=== PATIENT | female | born 1965 | race Caucasian/White ===

== ENCOUNTER 2017-02-21 08:42 | Inpatient (IN) | payer MEDICAID ==
[2017-02-21] VITALS (10 sets, daily range): BP systolic 156–222; BP diastolic 90–116; PULSE 60–80; RESP 14–20; TEMP 96–97.7; O2SAT 97–100
[~2017-02-21] VITALS: Ht 162.6 cm; Wt 39.0 kg
[~2017-02-21 08:42] MED LIST: ASPI1TAB69 PO; ECHICAP PO; LISI30TA4 PO; LYSI1TAB4 PO; MILK140C PO; VITA10002 PO
[2017-02-21] MEDS ORDERED: SODIUM CHLORIDE 0.9% FLUSH 10 ML FLUSH IVF PRN (09:15)
[2017-02-21] MEDS ORDERED: ASPIRIN 81 MG CHEW TAB CHEW ONE (09:15)
[2017-02-21] MEDS ORDERED: cloNIDine HCL 0.1 MG TAB PO ONE (09:15)
--- NOTE | 2017-02-21 09:18 | PD ---
HPI Chief Complaint: Neuro Symptoms/ Deficits Time Seen by Provider: 09:04 Travel History International Travel<30 days: No Contact w/Intl Traveler<30days: No Traveled to known affect area: No History of Present Illness HPI Patient presents with complaints of left-sided weakness and facial asymmetry for more than 24 hours. States she awoke yesterday morning at 5:30 AM with these symptoms and didn't feel right. History of breast cancer coronary artery disease and hypertension. Compliant with aspirin and lisinopril this morning. Patient states that she fell this morning onto her left buttocks. History of right sided Lawrence's palsy. Denies any chest pain shortness of breath urinary or bowel symptoms. Denies any nausea vomiting diarrhea or fever. Denies headache. No recent illnesses. Nonsmoker. PFSH Past Medical History Cancer: Yes ( LUNG CANCER) Cardiovascular Problems: Yes ( 2 MILD HEART ATTACKS) Chest Pain: Yes ([place] X 2) Diabetes: No Endocrine: No Genitourinary: No Hepatitis: No Hiatal Hernia: No Immune Disorder: No Musculoskeletal: No Neurologic: No Psychiatric: No Reproductive: No Respiratory: No Myocardial Infarction: Yes Thyroid Disease: No Past Surgical History Abdominal Surgery: No AICD: No Cardiac Surgery: No Section: Yes Ear Surgery: No Endocrine Surgery: No Eye Surgery: No Genitourinary Surgery: No Joint Replacement: No Oral Surgery: No Pacemaker: No Social History Alcohol Use: Yes (BEER DAILY) Tobacco Use: Yes (1 /2 PPD) Substance Use: No Allergies-Medications (Allergen,Severity, Reaction): Coded Allergies: Clindamycin (Verified Allergy, Severe, rash, 02/21/17) Levaquin (Verified Allergy, Intermediate, Itching, 02/21/17) Naprosyn (Verified Allergy, Intermediate, rash, 02/21/17) Amoxicillin (Verified Allergy, Mild, ITCHING, 02/21/17) SWELLING Penicillin (Verified Allergy, Mild, ITCHING, 02/21/17) Reported Meds & Prescriptions Reported Meds & Active Scripts Active Reported Lysine (Lysine HCl) 500 Mg Tab 1 Tab PO DAILY Vitamin B-12 (Cyanocobalamin) 1,000 Mcg Tab 1,000 Mcg PO DAILY Aspirin 81 Mg Tabdr 81 Mg PO DAILY Milk Thistle 140 Mg Cap 1 Caplet PO DAILY Lisinopril 30 Mg Tab 30 Mg PO DAILY Review of Systems General / Constitutional: No: Fever Eyes: No: Visual changes HENT: No: Headaches Cardiovascular: No: Chest Pain or Discomfort Respiratory: No: Shortness of Breath Gastrointestinal: No: Abdominal Pain Genitourinary: No: Dysuria Musculoskeletal: No: Pain Skin: No Rash Neurologic: No: Weakness Psychiatric: No: Depression Endocrine: No: Polydipsia Hematologic/Lymphatic: No: Easy Bruising Physical Exam Narrative GENERAL: Well-nourished, well-developed patient. Alert and oriented GCS 15 SKIN: Focused skin assessment warm/dry. HEAD: Normocephalic. Central facial weakness noted EYES: No scleral icterus. No injection or drainage. Pupils equal round reactive light accommodation NECK: Supple, trachea midline. No JVD or lymphadenopathy. CARDIOVASCULAR: Regular rate and rhythm without murmurs, gallops, or rubs. RESPIRATORY: Breath sounds equal bilaterally. No accessory muscle use. GASTROINTESTINAL: Abdomen soft, non-tender, nondistended. MUSCULOSKELETAL: No cyanosis, or edema. Left-sided upper and lower extremity mildly weaker than the right BACK: Nontender without obvious deformity. No CVA tenderness. Data Data Last Documented VS Vital Signs Date Time Temp Pulse Resp B/P Pulse Ox O2 Delivery O2 Flow Rate FiO2 02/21/17 10:56 63 16 156/90 98 02/21/17 09:50 Room Air 02/21/17 08:55 97.6 Orders Aspirin Chew (Aspirin Chew) (02/21/17 09:15) Electrocardiogram (02/21/17 09:04) Complete Blood Count With Diff (02/21/17 09:04) Comprehensive Metabolic Panel (02/21/17 09:04) Ct Brain W/O Iv Contrast(Rout) (02/21/17 09:04) Ecg Monitoring (02/21/17 09:04) Iv Access Insert/Monitor (02/21/17 09:04) Oximetry (02/21/17 09:04) Sodium Chloride 0.9% Flush (Ns Flush) (02/21/17 09:15) Clonidine (Catapres) (02/21/17 09:15) Admit Order (Ed Use Only) (02/21/17 ) Vital Signs (Adult) Q4H (02/21/17 11:32) Diet Npo (02/22/17 Breakfast) Activity Oob With Assistance (02/21/17 11:32) ^ Saline Lock (02/21/17 11:32) Resp Oxygen Eddie C Titrat 1-4 L (02/21/17 ) Notify Dr: Other (02/21/17 11:32) Neuro Checks . ORDERED (02/21/17 11:32) Swallow Eval W/ St (02/21/17 11:32) Consult Neurology (02/21/17 ) Labs Laboratory Tests Test 02/21/17 02/21/17 08:55 09:53 White Blood Count 3.7 TH/MM3 Red Blood Count 3.65 MIL/MM3 Hemoglobin 12.2 GM/DL Hematocrit 34.6 % Mean Corpuscular Volume 94.9 FL Mean Corpuscular Hemoglobin 33.5 PG Mean Corpuscular Hemoglobin 35.2 % Concent Red Cell Distribution Width 12.3 % Platelet Count 241 TH/MM3 Mean Platelet Volume 6.8 FL Neutrophils (%) (Auto) 52.5 % Lymphocytes (%) (Auto) 27.3 % Monocytes (%) (Auto) 15.2 % Eosinophils (%) (Auto) 2.0 % Basophils (%) (Auto) 3.0 % Neutrophils # (Auto) 1.9 TH/MM3 Lymphocytes # (Auto) 1.0 TH/MM3 Monocytes # (Auto) 0.6 TH/MM3 Eosinophils # (Auto) 0.1 TH/MM3 Basophils # (Auto) 0.1 TH/MM3 CBC Comment DIFF FINAL Differential Comment Sodium Level 129 MEQ/L Potassium Level 4.2 MEQ/L Chloride Level 92 MEQ/L Carbon Dioxide Level 26.8 MEQ/L Anion Gap 10 MEQ/L Blood Urea Nitrogen 9 MG/DL Creatinine 0.83 MG/DL Estimat Glomerular Filtration 72 ML/MIN Rate Random Glucose 93 MG/DL Calcium Level 9.0 MG/DL Total Bilirubin 0.6 MG/DL Aspartate Amino Transf 26 U/L (AST/SGOT) Alanine Aminotransferase 20 U/L (ALT/SGPT) Alkaline Phosphatase 90 U/L Total Protein 7.8 GM/DL Albumin 4.2 GM/DL [facility] Medical Decision Making Medical Screen Exam Complete: Yes Emergency Medical Condition: Yes Differential Diagnosis Lawrence's palsy, CVA, TIA Narrative Course Assessment and plan discussed with patient and at bedside. EKG reveals sinus rhythm rate of 69. Elevated blood pressure noted, patient given clonidine with improvement of blood pressure. Patient had mild difficulty swallowing fluids. Patient has been assigned to a PCP/Dr. Martines but has not seen her. Last [address] 02/21/17 0904 Signed Impressions: Service Date/Time: Tuesday, February 21, 2017 09:23 - CONCLUSION: No acute abnormality seen.. Shivani Arguello MD Physician Communication Physician Communication Spoke with Dr Berumen who is in agreement, will admit for further workup Diagnosis Primary Impression: CVA (cerebral vascular accident) Qualified Code: I63.9 - Cerebrovascular accident (CVA), unspecified mechanism Admitting Information Admitting Physician Requests: Admit Audi Marte MD Feb 21, 2017 09:17 Audi Marte MD Feb 21, 2017 09:17
[2017-02-21 09:19] LABS: AUTOMATED NEUTROPHIL # 1.9 TH/MM3 (1.8-7.7); BASOPHIL # 0.1 TH/MM3 (0-0.2); EOSINOPHIL # 0.1 TH/MM3 (0-0.4); HEMATOCRIT 34.6 % (35.0-46.0); HEMO FLAGS DIFF FINAL; LYMPH % 27.3 % (9.0-44.0); MEAN CELL VOLUME 94.9 FL (80.0-100.0); MEAN CORPUSCULAR HEMOGLOBIN 33.5 PG (27.0-34.0); MEAN CORPUSCULAR HGB CONC 35.2 % (32.0-36.0); MONO % 15.2 % (0.0-8.0); NEUT % 52.5 % (16.0-70.0); PLATELET COUNT 241 TH/MM3 (150-450); RED BLOOD COUNT 3.65 MIL/MM3 (4.00-5.30); RED CELL DISTRIBUTION WIDTH 12.3 % (11.6-17.2); WHITE BLOOD COUNT 3.7 TH/MM3 (4.0-11.0)
--- NOTE | 2017-02-21 09:45 | RADHPO ---
EXAM DATE/TIME: 02/21/2017 09:23 [facility] COMPARISON: No previous studies available for comparison. INDICATIONS : Altered mental status. RADIATION DOSE: 62.40 CTDIvol (mGy) MEDICAL HISTORY : Hypertension. Carcinoma, lung. SURGICAL HISTORY : None. ENCOUNTER: Initial ACUITY: 1 day PAIN SCALE: 1/10 LOCATION: cranial TECHNIQUE: Multiple contiguous axial images were obtained of the head. Using automated exposure control and adj ustment of the mA and/or kV according to patient size, radiation dose was kept as low as reasonably a chievable to obtain optimal diagnostic quality images. FINDINGS: CEREBRUM: The ventricles are normal for age. No evidence of midline shift, mass lesion, hemorrhage or acute in farction. No extra-axial fluid collections are seen. Periventricular decreased attenuation, somewhat greater than expected for the patient's age. Likely related to chronic small vessel ischemic change. There are focal areas of demyelination within the right and left basal ganglia consistent with eithe r prominent perivascular spaces versus old infarct. POSTERIOR FOSSA: The cerebellum and brainstem are intact. The 4th ventricle is midline. The cerebellopontine angle i s unremarkable. EXTRACRANIAL: The visualized portion of the orbits is intact. SKULL: The calvaria is intact. No evidence of skull fracture. CONCLUSION: No acute abnormality seen.. Shivani Arguello MD on February 21, 2017 at 9:41 Board Certified Radiologist. This report was verified electronically.
[2017-02-21 10:10] LABS: BICARBONATE 26.8 MEQ/L (21.0-32.0); BLOOD UREA NITROGEN 9 MG/DL (7-18)
[2017-02-21 10:13] LABS: ALT (GPT) 20 U/L (10-53); AST (GOT) 26 U/L (15-37); GLOMERULAR FILTRATION RATE 72 ML/MIN (>89)
[2017-02-21 10:14] LABS: ANION GAP 10 MEQ/L (5-15); CHLORIDE 92 MEQ/L (98-107); POTASSIUM 4.2 MEQ/L (3.5-5.1); SODIUM (NA) 129 MEQ/L (136-145); TOTAL BILIRUBIN ADULT 0.6 MG/DL (0.2-1.0)
[2017-02-21 10:15] LABS: ALKALINE PHOSPHATASE 90 U/L (45-117)
[2017-02-21] MEDS ORDERED: GLUCAGON 1 MG/ML VIAL IM/SQ PRN (11:45)
[2017-02-21] MEDS ORDERED: SODIUM CHLORIDE 0.9% FLUSH 10 ML FLUSH IV FLUSH PRN (11:45)
[2017-02-21] MEDS ORDERED: DEXTROSE 50% IN WATER 50 ML VIAL(D50) IV PUSH PRN (11:45)
[2017-02-21] MEDS ORDERED: ENALAPRILAT 1.25 MG/ML VIAL IV PRN (11:45)
[2017-02-21] MEDS: ENOXAPARIN SODIUM 40 MG/0.4 ML SYRINGE SQ SCH (11:57)
[2017-02-21] MEDS: INSULIN ASPART SUPPLEMENTAL SCALE SQ SCH ×2 (16:00→21:00)
--- NOTE | 2017-02-21 17:29 | RADHPO ---
EXAM DATE/TIME: 02/21/2017 16:57 [facility] COMPARISON: No previous studies available for comparison. INDICATIONS : Left sided weakness. MEDICAL HISTORY : Carcinoma, lung. SURGICAL HISTORY : Pneumonectomy. section. ENCOUNTER: Initial ACUITY: 1 day PAIN SCORE: 0/10 LOCATION: cranial Please note a normal MRA of the brain does not entirely exclude the possibility of a small aneurysm, nor the possibility of distal intracranial vessel disease. TECHNIQUE: 3D time of flight MRA was performed. Source images, multiplanar STS MIP, and 3D volume MIP reconstru ctions were reviewed. FINDINGS: There is excellent visualization of the major intracranial arteries out to the second-order branch ve ssels. There is no evidence for aneurysm, vessel truncation or stenosis, and no evidence for vascula r malformation. CONCLUSION: Normal examination for a patient of this age. Shivam Glasgow MD on February 21, 2017 at 17:27 Board Certified Radiologist. This report was verified electronically.
--- NOTE | 2017-02-21 17:32 | RADHPO ---
EXAM DATE/TIME: 02/21/2017 16:57 [facility] COMPARISON: CT BRAIN W/O CONTRAST, February 21, 2017, 9:23. INDICATIONS : Left sided weakness. MEDICAL HISTORY : Hypertension. Carcinoma, lung. SURGICAL HISTORY : Pneumonectomy. section. ENCOUNTER: Initial ACUITY: 1 day PAIN SCORE: 0/10 LOCATION: cranial TECHNIQUE: Multiplanar, multisequence MRI of the brain was performed without contrast. FINDINGS: CEREBRUM: The ventricles are normal for age. No evidence of midline shift, mass lesion, hemorrhage. No extraa xial fluid collections are seen. The pituitary gland and suprasellar cistern are normal in configura tion. WHITE MATTER: High signal spots are seen in the white matter tracts bilaterally characteristic of chronic white mat ter changes such as ischemic demyelinization. POSTERIOR FOSSA: The cerebellum and brainstem are intact. There appears to be some chronic changes within the midbrain . The 4th ventricle is midline. The cerebellopontine angle is unremarkable. The cerebellar tonsils a re normal in position. DIFFUSION IMAGING: There is a focal 1 cm area of increased signal in the right mid parietal area suggestive of a small a cute infarct. There is a questionable 2 mm area of increased signal high along the left cerebral vert ex. This may be a tiny cortical infarct. No other areas of restricted diffusion are demonstrated. EXTRACRANIAL: The visualized portions of the orbits and paranasal sinuses are unremarkable. CONCLUSION: 1. Small 1 cm acute infarct involving the right mid parietal area. 2. Questionable 2 mm cortical infarct involving the left cerebral vertex. 3. There are chronic white matter changes bilaterally suggestive of ischemic demyelinization. 4. Chronic changes within the midbrain. Shivam Glasgow MD on February 21, 2017 at 17:27 Board Certified Radiologist. This report was verified electronically.
--- NOTE | 2017-02-21 20:26 | HHI.HP ---
HPI Service [facility] Primary Care Physician Shelia Martines MD Admission Diagnosis CVA Diagnoses: Travel History International Travel<30 Days: No Contact w/Intl Traveler <30 Da: No Traveled to Known Affected Are: No History of Present Illness 51-year-old female with a history of lung cancer status post lobectomy, having completed chemotherapy 1 year ago, currently in remission, coronary artery disease, hypertension, chronic hyponatremia, who presents with left-sided weakness and slurred speech. Patient herself is alert and oriented 3 and provides history. Patient's boyfriend of many years is at bedside. Patient reports that yesterday morning she felt off balance, however was able to go to the store. However yesterday afternoon she began to have slurred speech, however decided to go to sleep. She will cup around 2 AM this morning, and noticed that her left leg was dragging, and that she had left arm weakness as well. She denies any recent medication changes. She denies any fevers, chills. Denies headache. Review of Systems performed and negative except for HPI and past medical history. Past Family Social History Past Medical History Hypertension B12 deficiency Non-small cell lung cancer diagnosed in January 2015. Underwent right upper lobectomy in May 2015. Status post chemotherapy completed in August 2015. Currently in remission. Most recently seen by Dr. Rose in December. Arthritis Coronary artery disease. 2 mild heart attacks in the past. Echocardiogram in 2014 with normal ejection fraction. Past Surgical History section Carpal tunnel nerve release Right upper lobectomy Reported Medications Reported Meds & Active Scripts Active Reported Lysine (Lysine HCl) 500 Mg Tab 1 Tab PO DAILY Vitamin B-12 (Cyanocobalamin) 1,000 Mcg Tab 1,000 Mcg PO DAILY Aspirin 81 Mg Tabdr 81 Mg PO DAILY Milk Thistle 140 Mg Cap 1 Caplet PO DAILY Lisinopril 30 Mg Tab 30 Mg PO DAILY Allergies: Coded Allergies: Clindamycin (Verified Allergy, Severe, rash, 02/21/17) Levaquin (Verified Allergy, Intermediate, Itching, 02/21/17) Naprosyn (Verified Allergy, Intermediate, rash, 02/21/17) Amoxicillin (Verified Allergy, Mild, ITCHING, 02/21/17) SWELLING Penicillin (Verified Allergy, Mild, ITCHING, 02/21/17) Family History Family history reviewed with the patient and found be currently noncontributory. Social History Smokes 1.5 packs per day. Patient drinks beer daily. She denies any illicit drugs. Physical Exam Vital Signs Vital Signs Date Time Temp Pulse Resp B/P Pulse Ox O2 Delivery O2 Flow Rate FiO2 02/21/17 19:37 100 21 02/21/17 16:00 97.5 68 20 158/95 100 02/21/17 12:30 96.0 60 20 188/100 100 02/21/17 12:22 60 175/92 100 02/21/17 10:56 63 16 156/90 98 02/21/17 09:50 97 Room Air 02/21/17 09:04 65 18 212/111 98 Room Air 02/21/17 09:04 Room Air 02/21/17 08:55 97.6 76 20 222/116 97 Physical Exam GENERAL: thin 51 yo f. aaox3. speech is clear. SKIN: No rashes, ecchymoses or lesions. Cool and dry. HEAD: Atraumatic. Normocephalic. No temporal or scalp tenderness. EYES: Pupils equal round and reactive. Extraocular motions intact. No scleral icterus. No injection or drainage. ENT: Nose without bleeding, purulent drainage or septal hematoma. Throat without erythema, tonsillar hypertrophy or exudate. Uvula midline. Airway patent. NECK: Trachea midline. No JVD or lymphadenopathy. Supple, nontender, no meningeal signs. CARDIOVASCULAR: Regular rate and rhythm without murmurs, gallops, or rubs. RESPIRATORY: Clear to auscultation. Breath sounds equal bilaterally. No wheezes , rales, or rhonchi. GASTROINTESTINAL: Abdomen soft, non-tender, nondistended. No hepato-splenomegaly , or palpable masses. No guarding. MUSCULOSKELETAL: Extremities without clubbing, cyanosis, or edema. No joint tenderness, effusion, or edema noted. No calf tenderness. Negative Homans sign bilaterally. LUE, LLE weak. NEUROLOGICAL: Awake and alert. facial droop on the left. LUE, LLE weak. Laboratory Laboratory Tests Test 02/21/17 02/21/17 08:55 09:53 White Blood Count 3.7 Red Blood Count 3.65 Hemoglobin 12.2 Hematocrit 34.6 Mean Corpuscular Volume 94.9 Mean Corpuscular Hemoglobin 33.5 Mean Corpuscular Hemoglobin 35.2 Concent Red Cell Distribution Width 12.3 Platelet Count 241 Mean Platelet Volume 6.8 Neutrophils (%) (Auto) 52.5 Lymphocytes (%) (Auto) 27.3 Monocytes (%) (Auto) 15.2 Eosinophils (%) (Auto) 2.0 Basophils (%) (Auto) 3.0 Neutrophils # (Auto) 1.9 Lymphocytes # (Auto) 1.0 Monocytes # (Auto) 0.6 Eosinophils # (Auto) 0.1 Basophils # (Auto) 0.1 CBC Comment DIFF FINAL Differential Comment Sodium Level 129 Potassium Level 4.2 Chloride Level 92 Carbon Dioxide Level 26.8 Anion Gap 10 Blood Urea Nitrogen 9 Creatinine 0.83 Estimat Glomerular Filtration 72 Rate Random Glucose 93 Calcium Level 9.0 Total Bilirubin 0.6 Aspartate Amino Transf 26 (AST/SGOT) Alanine Aminotransferase 20 (ALT/SGPT) Alkaline Phosphatase 90 Total Protein 7.8 Albumin 4.2 Result Diagram: 02/21/17 0855 02/21/17 0953 Imaging Last Impressions Head CT 02/21/1704 Signed Impressions: Service Date/Time: Tuesday, February 21, 2017 09:23 - CONCLUSION: No acute abnormality seen.. Shivani Arguello MD Head Magnetic Resonance Angiography 02/21/17 0000 Signed Impressions: Service Date/Time: Tuesday, February 21, 2017 16:57 - CONCLUSION: Normal examination for a patient of this age. Shivam Glasgow MD Carotid Artery Ultrasound 02/21/17 0000 Signed Impressions: Service Date/Time: Tuesday, February 21, 2017 19:26 - CONCLUSION: 1. There is moderate atherosclerotic changes at the right carotid bifurcation. There some mild elevation of velocity in the right internal carotid artery. There may be some mild stenosis at the origin of the right internal carotid artery. If clinically indicated, a CTA of the carotids could be performed for further evaluation. 2. Mild atherosclerotic changes at the left carotid bifurcation. No focal high-grade or hemodynamically significant stenosis is demonstrated. Shivam Glasgow MD Brain MRI 02/21/17 0000 Signed Impressions: Service Date/Time: Tuesday, February 21, 2017 16:57 - CONCLUSION: 1. Small 1 cm acute infarct involving the right mid parietal area. 2. Questionable 2 mm cortical infarct involving the left cerebral vertex. 3. There are chronic white matter changes bilaterally suggestive of ischemic demyelinization. 4. Chronic changes within the midbrain. Shivam Glasgow MD Assessment and Plan Assessment and Plan //Acute stroke. On MRI. With left-sided weakness Patient initially placed head of bed down, however upon speaking with neurology , will raise the head of the bed so patient can eat. Aspiration precautions. -Neurochecks -Continue aspirin. -Physical therapy, occupational therapy assistance appreciated. Continue to monitor closely. Echocardiogram pending. Appreciate neurology assistance. //Hypertension. Hold lisinopril. Permissive hypertension in the setting of stroke. //B12 deficiency. We'll continue B12. //Tobacco abuse. Recommend cessation. Association with atherosclerosis discussed. //Chronic hyponatremia. At baseline. We'll continue to monitor. //Leukopenia. This. Chronic. Possibly secondary to past chemotherapy. No signs of infection. Continue to monitor. //Prophylaxis. SCDs, Lovenox. Discussed Condition With patient, Dr. Cunningham, longtime boyfriend at bedside. Physician Certification 2 Midnight Certification Type: Admission for Inpatient Services Order for Inpatient Services The services are ordered in accordance with Medicare regulations or non- Medicare payer requirements, as applicable. In the case of services not specified as inpatient-only, they are appropriately provided as inpatient services in accordance with the 2-midnight benchmark. Estimated LOS (days): 2 days is the estimated time the patient will need to remain in the hospital, assuming treatment plan goals are met and no additional complications. Post-Hospital Plan: Not yet determined Ric Berumen MD Feb 21, 2017 20:26
[2017-02-21] MEDS: SODIUM CHLORIDE 0.9% FLUSH 10 ML FLUSH IV FLUSH SCH (21:00)
--- NOTE | 2017-02-21 21:05 | RADHPO ---
EXAM DATE/TIME: 02/21/2017 19:26 [facility] COMPARISON: US CAROTID ARTERIES, May 04, 2015, 9:39. INDICATIONS : Cerebrovascular accident. MEDICAL HISTORY : Myocardial infarction. Arthritis. Syncope. Lung cancer. Hypertension. SURGICAL HISTORY : section. ENCOUNTER: [facility] ACUITY: 2 days PAIN SCORE: 0/10 LOCATION: Bilateral neck PEAK SYSTOLIC VELOCITIES (cm/sec): ICA/CCA RATIO: Right: 2.6 Left: 1.3 ICA: Right: 126 Left: 59 CCA: Right: 49 Left: 59 ECA: Right: 41 Left: 57 VERTEBRAL: Right: 36 antegrade Left: 55 antegrade Elevated flow velocities and ICA/CCA ratios have been found to correlate with increased degrees of vessel stenosis, calculated as percentage of diameter relative to a normal segment of distal ICA/CCA FINDINGS: RIGHT CAROTID: There is a moderate atherosclerotic changes at the distal right common carotid artery and at the bifu rcation. There is flow in the internal and external vessels. There is mild elevation of velocity in t he right internal carotid artery. LEFT CAROTID: Mild atherosclerotic changes of the bifurcation. No significant stenosis is visualized. The waveform s are within normal limits. VERTEBRAL ARTERIES: Antegrade flow is seen in both vertebral arteries. MISCELLANEOUS: None. CONCLUSION: 1. There is moderate atherosclerotic changes at the right carotid bifurcation. There some mild elevat ion of velocity in the right internal carotid artery. There may be some mild stenosis at the origin o f the right internal carotid artery. If clinically indicated, a CTA of the carotids could be performe d for further evaluation. 2. Mild atherosclerotic changes at the left carotid bifurcation. No focal high-grade or hemodynamical ly significant stenosis is demonstrated. Shivam Glasgow MD on February 21, 2017 at 21:01 Board Certified Radiologist. This report was verified electronically.
--- NOTE | 2017-02-21 22:47 | MB ---
cc: JOHN MALONE MD DATE OF CONSULTATION 02/21/17 1964 REASON FOR CONSULTATION Stroke HISTORY OF PRESENT ILLNESS The patient is a 51-year-old woman who apparently was in her usual state of health when she started having left-sided symptoms for more than 24 hours. She woke up, did not feel right, actually even had some trouble speaking, some weakness in the arm. Subsequently, she decided to go back to sleep, felt somewhat better, even went to the store but then started having more symptoms in the leg. She presents to the ER for evaluation. She had an MRI of the brain that confirms an acute right parietal infarct and a possible small left hemispheric infarct as well, lacune. The patient is still having some weakness in the left arm, lesser of the leg and facial droop. Denies any headache, any chest pain or shortness of breath, sensory deficits. She has a history of lung cancer with lobectomy. cardiovascular disease with two mild heart attacks in the past, hypertension, old right Lawrence's palsy in the past. SOCIAL HISTORY She used to smoke beer on a daily basis. Substance abuse negative. ALLERGIES CLINDAMYCIN LEVAQUIN NAPROSYN AMOXICILLIN PENICILLIN MEDICATIONS Hhome medicines are 1. Lysine 2. B12 3. Baby aspirin 4. Mild thistle 5. Lisinopril PHYSICAL EXAMINATION VITAL SIGNS: Temperature 97.5, pulse 68, respiratory rate 20, blood pressure 158/95, sating at 100% room air. NECK: Supple. No carotid bruits. HEART: Regular. NEUROLOGIC She is awake, alert. She is oriented. She is not dysarthric. She does have a left facial droop not involving the forehead. Tongue is midline. Motor: Left arm drift, left leg lag at best 4/5. DTRs are intact. Sensory is normal. Toes upgoing on the left. [id number] she is unable to do on the left side. Gait is withheld at this time. LABORATORY DATA Reviewed. White count 3.7, hematocrit 34.6, platelets 241,000. Chemistries - sodium chronically low she states 129, GFR 72, hemoglobin A1c is pending. IMAGING STUDIES Brain MRI shows small 1 cm acute infarct left mid parietal region and there is possible 2 mm left cerebral infarct, cortical and chronic white matter change involving also the mid brain. MRA [place] of [place] normal for her age. IMPRESSION A 51 year old woman with right hemispheric stroke, questionable small left hemispheric stroke with a history of lung cancer, coronary artery disease, hypertension. Recommend getting a 2-D echo, hemoglobin A1c, lipid panel, carotid ultrasound. I would change her from her aspirin to Plavix daily, Lovenox for DVT prophylaxis. PT, OT, speech therapy. Permissible hypertension. Can start normalizing her blood pressure tomorrow and may need evaluation by rehabilitation versus outpatient depending on PT's recommendations. If stable, discharge planning in the next 24-48 hours. MD BIRGIT Mendiola/ /6:44 PM /10:36 PM
[2017-02-22 00:16] VITALS: BP 165/105; PULSE 97; RESP 16; TEMP 96.7; O2SAT 99
[2017-02-22 05:04] VITALS: BP 150/100; PULSE 90; RESP 12; TEMP 97.6; O2SAT 93
[2017-02-22] MEDS: INSULIN ASPART SUPPLEMENTAL SCALE SQ SCH (06:14)
[2017-02-22 06:42] LABS: AUTOMATED NEUTROPHIL # 1.3 TH/MM3 (1.8-7.7); EOSINOPHIL # 0.1 TH/MM3 (0-0.4); HEMATOCRIT 31.4 % (35.0-46.0); HEMO FLAGS DIFF FINAL; LYMPH % 35.9 % (9.0-44.0); LYMPHOCYTE # 1.1 TH/MM3 (1.0-4.8); MEAN CELL VOLUME 96.4 FL (80.0-100.0); MEAN CORPUSCULAR HEMOGLOBIN 32.5 PG (27.0-34.0); MEAN CORPUSCULAR HGB CONC 33.7 % (32.0-36.0); MONO % 15.1 % (0.0-8.0); PLATELET COUNT 244 TH/MM3 (150-450); RED BLOOD COUNT 3.25 MIL/MM3 (4.00-5.30); RED CELL DISTRIBUTION WIDTH 12.3 % (11.6-17.2)
[2017-02-22 06:53] LABS: POTASSIUM 4.1 MEQ/L (3.5-5.1)
[2017-02-22 06:59] LABS: BICARBONATE 26.1 MEQ/L (21.0-32.0)
[2017-02-22 07:56] VITALS: BP 149/100; PULSE 63; RESP 20; TEMP 96.6; O2SAT 100
[2017-02-22] MEDS: SODIUM CHLORIDE 0.9% FLUSH 10 ML FLUSH IV FLUSH SCH (08:03)
[2017-02-22] MEDS ORDERED: ASPIRIN 325 MG TAB PO SCH (09:00)
[2017-02-22] MEDS ORDERED: CYANOCOBALAMIN 1,000 MCG TAB PO SCH (09:00)
[2017-02-22 09:12] VITALS: O2SAT 99
[2017-02-22] MEDS ORDERED: DOCUSATE SODIUM 50 MG/SENNA 8.6 MG TAB PO ONE (09:15)
--- NOTE | 2017-02-22 10:12 | EC ---
Study Study Date:02/21/2017 STUDY CONCLUSIONS SUMMARY - Left ventricle: The cavity size was normal. Wall thickness was normal. Systolic function was normal. The estimated ejection fraction was in the range of 50% to 55%. Wall motion was normal; there were no regional wall motion abnormalities. - Aortic valve: Valve area: 2.61cm^2 (Vmax). If LV function is below 40, please consider prescribing an ACEI or ARB or document rationale for non-use. PROCEDURE DATA STUDY STATUS: Elective. Procedure: Transthoracic echocardiography. Image quality was poor. Scanning was performed from the parasternal, apical, and subcostal acoustic windows. Study completion: The patient tolerated the procedure well. Transthoracic echocardiography. M-mode, complete 2D, complete spectral Doppler, and color Doppler. Height: Height: 64in. Weight: Weight: 82.8lb. Body mass index: BMI: 14.2kg/m^2. Body surface area: BSA: 1.35m^2. Patient status: Inpatient. CARDIAC ANATOMY LEFT VENTRICLE: The cavity size was normal. Wall thickness was normal. Systolic function was normal. The estimated ejection fraction was in the range of 50% to 55%. Wall motion was normal; there were no regional wall motion abnormalities. AORTIC VALVE: Trileaflet; mildly thickened, mildly calcified leaflets. Doppler: Transvalvular velocity was within the normal range. There was no stenosis. No regurgitation. Valve area: 2.61cm^2 (Vmax). Indexed valve area: 1.93cm^2/m^2 (Vmax). AORTA: Aortic root: The aortic root was normal in size. MITRAL VALVE: Structurally normal valve. Doppler: Transvalvular velocity was within the normal range. There was no evidence for stenosis. No regurgitation. LEFT ATRIUM: The atrium was normal in size. RIGHT VENTRICLE: The cavity size was normal. Wall thickness was normal. PULMONIC VALVE: Doppler: Transvalvular velocity was within the normal range. There was no evidence for stenosis. No regurgitation. TRICUSPID VALVE: Structurally normal valve. Doppler: Transvalvular velocity was within the normal range. No regurgitation. PULMONARY ARTERY: The main pulmonary artery was normal-sized. Systolic pressure was within the normal range. RIGHT ATRIUM: The atrium was normal in size. PERICARDIUM: There was no pericardial effusion. SYSTEMIC VEINS: Inferior vena cava: The vessel was normal in size. Patient weight: 82.8lb _Ejection fraction:_ 65-75% _Fractional shortening:_ 32% up to 5Kg 5-11.5Kg 11.6-22.9Kg 23-45Kg 45-57Kg Aortic Root 7-13 <17 13-22 17-27 17-27 LA diam 6-13 <23 24-38 33-47 37-40 RVID 10-17 7-15 7-15 7-18 8-17 LVIDd 12-22 <32 24-38 33-47 37-40 LVPW 2-4 3-6 5-7 6-8 7-8 IVS 2-4 3-6 5-7 6-8 7-8 BASIC MEASUREMENTS ADULT NORMAL Left ventricle LV internal dimension, ED, chordal *29.8 mm 43-52 level, PLAX LV internal dimension, ES, chordal 23.4 mm 23-38 level, PLAX Fractional shortening, chordal level, *21 % >29 PLAX LV posterior wall thickness, ED 7.2 mm IVS/LVPW ratio, ED 1.03 <1.3 Ventricular septum Septal thickness, ED 7.39 mm Aortic valve Leaflet separation 19 mm 15-26 BASIC MEASUREMENTS ADULT NORMAL Aortic valve Leaflet separation 19 mm 15-26 Aorta Root diameter, ED 23 mm 20-37 Left atrium Anterior-posterior dimension, ES 24 mm 19-40 Anterior-posterior dimension index, ES 1.78 cm/m^2 <2.2 LA/aortic root ratio 1.04 DOPPLER MEASUREMENTS ADULT NORMAL Main pulmonary artery Pressure, S 29 mm Hg =30 Aortic valve Peak velocity, S 93.7 cm/s Valve area, Vmax 2.61 cm^2 Valve area index, Vmax 1.93 cm^2/m^2 Mitral valve Peak E-wave velocity 58.2 cm/s Peak A-wave velocity 46.4 cm/s Deceleration time 162 ms 150-230 Peak E/A ratio 1.3 Maximal regurgitant velocity 398 cm/s Tricuspid valve Regurgitant peak velocity 231 cm/s Peak RV-RA gradient, S 21 mm Hg Maximal regurgitant velocity 231 cm/s Systemic veins Estimated CVP 10 mm Hg Right ventricle RV pressure, S *31 mm Hg <30 Pulmonic valve Peak velocity, S 71.9 cm/s LEGEND: Mean values are shown as u=mean value. Asterisk (*) rose values outside specified normal range. Prepared and signed by Lenin Chun [id number]
--- NOTE | 2017-02-22 10:27 | EKG ---
Date Performed: 02/21/2017 Time Performed: 08:56:00 PTAGE: 51 years EKG: Sinus rhythm . rSr'(V1) - probable normal variant Septal ST-T changes are nonspecific Compared to prior tracing no significant change Borderline ECG PREVIOUS TRACING : 05/09/2015 11.41 DOCTOR: Latonya Galvin Interpretating Date/Time 02/22/2017 10:25:03
[2017-02-22] MEDS: ENOXAPARIN SODIUM 40 MG/0.4 ML SYRINGE SQ SCH (11:08)
[2017-02-22 11:56] VITALS: BP 141/94; PULSE 71; RESP 20; TEMP 97.8; O2SAT 98
[2017-02-22 12:20] LABS: HDL CHOLESTEROL 97.8 MG/DL (40.0-60.0)
[2017-02-22 13:40] LABS: HEMOGLOBIN A1b 1.3 %; HEMOGLOBIN Ao 85.5 %; HEMOGLOBIN LA1C 1.7 %; HEMOGLOBIN P3 3.4 %
[2017-02-22] MEDS ORDERED: SIMV5TAB3 PO (13:58)
[2017-02-22] MEDS ORDERED: ASPI325T PO (13:58)
--- NOTE | 2017-02-22 14:05 | HHI.FF ---
Face to Face Verification Diagnosis: (1) CVA (cerebral vascular accident) Physical Therapy Order: Evaluate and Treat Occupational Therapy Order: Evaluate and Treat I have seen patient Jessica Calderon on 02/22/17. My clinical findings support the need for the requested home health care services because: Deconditioned w/ increased weakness I certify that my clinical findings support that this patient is homebound because: Unsafe to leave home unassisted Ric Berumen MD Feb 22, 2017 14:05
[2017-02-22] MEDS ORDERED: PLAV75TA29 PO (17:04)
[2017-02-22] MEDS ORDERED: CLOPIDOGREL 75 MG TAB PO ONE (17:15)
--- NOTE | 2017-02-23 18:52 | HHI.PR ---
Subjective Remarks Date of service 02/22/17. Patient seen around 11 AM on 02/22/17. Patient says she is getting much stronger. Denies any chest pain or shortness of breath. Says she feels like going home. He agrees to follow up with neurology as outpatient to obtain CT angiogram of the carotids Objective I/O 02/22/17 02/22/17 02/22/17 02/23/17 02/23/17 02/23/17 07:00 15:00 23:00 07:00 15:00 23:00 Intake Total 0 ml 1280 ml Balance 0 ml 1280 ml Intake Oral 1280 ml IV Total 0 ml # Voids 3 Result Diagram: 02/22/1761402/22/17614 Objective Remarks GENERAL: patient sitting up in bed. Clear speech. Alert and oriented 4. SKIN: Warm and dry. HEAD: Normocephalic. EYES: No scleral icterus. No injection or drainage. NECK: Supple, trachea midline. No JVD. CARDIOVASCULAR: Regular rate and rhythm without murmurs, gallops, or rubs. RESPIRATORY: Breath sounds equal bilaterally. No accessory muscle use. GASTROINTESTINAL: Abdomen soft, non-tender, nondistended. MUSCULOSKELETAL: No cyanosis, or edema. left-sided weakness much improved. Patient has been walking with supervision without difficult. BACK: Nontender without obvious deformity. No CVA tenderness. A/P Assessment and Plan //Acute stroke. On MRI. With left-sided weakness Patient initially placed head of bed down, however upon speaking with neurology , will raise the head of the bed so patient can eat. Aspiration precautions. -Neurochecks -Continue aspirin. -Physical therapy, occupational therapy assistance appreciated. Continue to monitor closely. Echocardiogram pending. Appreciate neurology assistance. -02/22. Echocardiogram with ejection fraction 50-69%. No thrombi. Continue permissive hypertension. Blood pressure medications have been stopped. Blood pressure stable. Switch to Plavix as per neurology. Patient has CT angiogram of neck ordered, however wishes to discharge home. Discussed with neurology. She can follow-up with neurology and have this obtained as an outpatient. Patient and longtime boyfriend at bedside agree that she will do so. //Hypertension. Hold lisinopril. Permissive hypertension in the setting of stroke. //B12 deficiency. We'll continue B12. //Tobacco abuse. Recommend cessation. Association with atherosclerosis discussed. //Chronic hyponatremia. At baseline. We'll continue to monitor. //Leukopenia. This. Chronic. Possibly secondary to past chemotherapy. No signs of infection. Continue to monitor. //Prophylaxis. SCDs, Lovenox. Discharge Planning Discharge home in good condition Heart healthy diet Activity as tolerated No invasive procedures performed. Please see discharge medication reconciliation for medication list. Follow-up with primary care and neurology. Patient will need CT angiogram of neck as per neurology at follow-up. Ric Berumen MD Feb 23, 2017 18:52
[2017-03-13] MEDS ORDERED: ATOR40TA16 PO (08:52)
[2017-03-13] MEDS ORDERED: LYSI1000 (08:54)
[2017-03-13] MEDS ORDERED: LISI40TA PO (08:54)
[2017-03-13] MEDS ORDERED: MILK87.5 (08:54)
[2017-03-13] MEDS ORDERED: PLAV75TA29 PO (09:15)
[2017-04-08] MEDS ORDERED: HYDR12.57 PO (09:32)
== END 2017-02-22 18:00 | disposition home or self-care (01) | DRG 65 ==
LOC: PHED 08:42 → PHEDA 11:37 → PH3B 12:20
PROVIDERS: ADMIT Internal Medicine; ATTEND Internal Medicine
DX: I63.20 Cerebral infarction due to unspecified occlusion or stenosis of unspecified precerebral arteries (principal); G81.94 Hemiplegia, unspecified affecting left nondominant side; I10 Essential (primary) hypertension; E53.8 Deficiency of other specified B group vitamins; I25.10 Atherosclerotic heart disease of native coronary artery without angina pectoris; F17.210 Nicotine dependence, cigarettes, uncomplicated; R29.810 Facial weakness
CPT/HCPCS: 70450; 70544; 70551; 80048; 80053; 80061; 82948; 83036; 85025; 93005; 93306; 93880; J1650

== ENCOUNTER 2017-04-11 15:30 | Inpatient (IN) | payer MEDICAID ==
[~2017-04-11] VITALS: Ht 167.6 cm; Wt 45.0 kg
[~2017-04-11 15:30] MED LIST changes: -ASPI1TAB69 PO; +ATOR40TA16 PO; -ECHICAP PO; +HYDR12.57 PO; -LISI30TA4 PO; +LISI40TA PO; +LYSI1000; -LYSI1TAB4 PO; -MILK140C PO; +MILK87.5; +PLAV75TA29 PO
[2017-04-11 15:34] VITALS: BP 149/95; PULSE 91; RESP 20; O2SAT 100
[2017-04-11] MEDS ORDERED: LIDOCAINE HCL 2% 100 MG/5 ML SYRINGE ONE (15:39)
[2017-04-11 15:40] VITALS: O2SAT 98
--- NOTE | 2017-04-11 15:54 | PD ---
HPI Chief Complaint: Altered Mental Status Time Seen by Provider: 15:44 Travel History International Travel<30 days: No Contact w/Intl Traveler<30days: No Traveled to known affect area: No History of Present Illness HPI This patient is brought in critically ill by paramedics. She was found unresponsive by her significant other. Unclear how long she was down before she was found. She had a GCS of 3 and a Combitube was placed by paramedics after they could not intubate her. She can provide no history or review of systems. PFSH Past Medical History Arthritis: Yes Heart Rhythm Problems: No Cancer: Yes ( LUNG CANCER, ) Cardiovascular Problems: Yes ( 2 MILD HEART ATTACKS) High Cholesterol: No Chemotherapy: Yes (chemo on left side) Chest Pain: Yes (RI X 2) Congestive Heart Failure: No Cerebrovascular Accident: Yes (possible stroke this admit) Diabetes: No Diminished Hearing: No Endocrine: No GERD: No Genitourinary: No Hepatitis: No Hiatal Hernia: No Hypertension: Yes Immune Disorder: No Kidney Stones: No Musculoskeletal: No Neurologic: Yes Psychiatric: No Reproductive: No Respiratory: No Migraines: No Myocardial Infarction: Yes Radiation Therapy: No Renal Failure: No Seizures: No Thyroid Disease: No Ulcer: No Past Surgical History Abdominal Surgery: No AICD: No Arteriovenous Shunt: No Cardiac Surgery: No Section: Yes Ear Surgery: No Endocrine Surgery: No Eye Surgery: No Genitourinary Surgery: No Insulin Pump: No Joint Replacement: No Oral Surgery: No Pacemaker: No Other Surgery: Yes Social History Alcohol Use: Yes (BEER DAILY) Tobacco Use: Yes (11/17 PPD) Substance Use: No Allergies-Medications (Allergen,Severity, Reaction): Coded Allergies: Clindamycin (Verified Allergy, Severe, rash, 04/08/17) Levaquin (Verified Allergy, Intermediate, Itching, 04/08/17) Naprosyn (Verified Allergy, Intermediate, rash, 04/08/17) Amoxicillin (Verified Allergy, Mild, ITCHING, 04/08/17) SWELLING Penicillin (Verified Allergy, Mild, ITCHING, 04/08/17) Reported Meds & Prescriptions Reported Meds & Active Scripts Active Hydrochlorothiazide 12.5 Mg Cap 12.5 Mg PO DAILY Plavix (Clopidogrel Bisulfate) 75 Mg Tab 75 Mg PO DAILY Lisinopril 40 Mg Tab 40 Mg PO DAILY Atorvastatin (Atorvastatin Calcium) 40 Mg Tab 40 Mg PO HS Reported Vitamin B-12 (Cyanocobalamin) 1,000 Mcg Tab 1,000 Mcg PO DAILY Review of Systems ROS Limitations: Clinical Condition, Intubated, Altered Mental Status, Unresponsive, Poor Historian Physical Exam Narrative GENERAL: Cachectic well-developed patient who is unresponsive with a Combitube . SKIN: Focused skin assessment reveals no rash and nodules. Skin is Warm and dry. HEAD: Atraumatic. Normocephalic. EYES: Pupils equal and round. No scleral icterus. No injection or drainage. ENT: No nasal bleeding or discharge. Mucous membranes pink and moist. NECK: Trachea midline. No JVD. CARDIOVASCULAR: Regular rate and rhythm. No murmur appreciated. RESPIRATORY: No accessory muscle use. Clear to auscultation. Breath sounds equal bilaterally. GASTROINTESTINAL: Abdomen soft, non-tender, nondistended. Hepatic and splenic margins not palpable. MUSCULOSKELETAL: No obvious deformities. No clubbing. No cyanosis. No edema. NEUROLOGICAL: GCS is 3. She has fixed and dilated bilateral pupils at 7 mm each. No gag reflex. No response to pain stimuli. No way to accurately gauge motor strength or sensation. PSYCHIATRIC: Unable to test mood and affect; insight and judgment untestable Data Data Last Documented VS Vital Signs Date Time Temp Pulse Resp B/P Pulse Ox O2 Delivery O2 Flow Rate FiO2 04/11/17 16:22 100 100 04/11/17 16:02 20 04/11/17 15:34 91 149/95 Orders Lidocaine 2% Inj (Xylocaine 2% Inj) (04/11/17 15:39) Chest, Single Ap (04/11/17 ) Iv Access Insert/Monitor (04/11/17 15:45) Complete Blood Count With Diff (04/11/17 15:45) Basic Metabolic Panel (Bmp) (04/11/17 15:45) Prothrombin Time / Inr (Pt) (04/11/17 15:45) Act Partial Throm Time (Ptt) (04/11/17 15:45) Ct Brain W/O Iv Contrast(Rout) (04/11/17 ) Arterial Blood Gas (Abg) (04/11/17 ) Urinary Catheter Insert/Apply (04/11/17 15:46) Library Information Technician / Telemetry ELICEO.Q8H (04/11/17 15:46) Drug Screen, Random Urine (04/11/17 15:46) Urinalysis - C+S If Indicated (04/11/17 15:46) Alcohol (Ethanol) (04/11/17 15:55) Cbc No Diff, Includes Plts (04/12/17 05:00) Cbc No Diff, Includes Plts (04/13/17 05:00) Cbc No Diff, Includes Plts (04/14/17 05:00) Cbc No Diff, Includes Plts (04/15/17 05:00) Cbc No Diff, Includes Plts (04/16/17 05:00) Cbc No Diff, Includes Plts (04/17/17 05:00) Cbc No Diff, Includes Plts (04/18/17 05:00) Basic Metabolic Panel (Bmp) (04/12/17 05:00) Basic Metabolic Panel (Bmp) (04/13/17 05:00) Basic Metabolic Panel (Bmp) (04/14/17 05:00) Basic Metabolic Panel (Bmp) (04/15/17 05:00) Basic Metabolic Panel (Bmp) (04/16/17 05:00) Basic Metabolic Panel (Bmp) (04/17/17 05:00) Basic Metabolic Panel (Bmp) (04/18/17 05:00) Magnesium Oxide (Mag-Ox) (04/11/17 16:45) Magnesium Sulfate Inj (Magnesium Sulfate (04/11/17 16:45) Magnesium Sulfate Inj (Magnesium Sulfate (04/11/17 16:45) Potassium Chlor 20 Meq Premix (Kcl 20 Me (04/11/17 16:45) Potassium Chlor 20 Meq Premix (Kcl 20 Me (04/11/17 16:45) Potassium Chlor 40 Meq Premix (Kcl 40 Me (04/11/17 16:45) Potassium Chlor 40 Meq Premix (Kcl 40 Me (04/11/17 16:45) Potassium Phosphate (K-Phos) (04/11/17 16:45) Potassium Phosphate (K-Phos) (04/11/17 16:45) Sodium Phosphate Inj (Sodium Phosphate I (04/11/17 16:45) ^ Medication Admin Instruction (04/11/17 16:31) Notify Dr: Other (04/11/17 16:31) Inpatient Certification (04/11/17 16:31) Chlorhexidine 0.12% Liq (Peridex 0.12% L (04/11/17 20:00) Resp Ventilation- Volume (04/11/17 ) Ventilator Weaning Readiness ELICEO.DAILY@0800 (04/11/17 16:31) ^ Elevate Head Of Bed (04/11/17 16:31) Bedside Glucose ELICEO.Q6H (04/11/17 16:31) Blood Glucose Goal (Criteria) (04/11/17 16:31) Hypoglycemia 51 - 69 Mg/Dl (04/11/17 16:31) Hypoglycemia 50 Mg/Dl Or < (04/11/17 16:31) Notify Dr: Other (04/11/17 16:31) Dextrose 50% In Kacy (Vial) Inj (D50w (Vi (04/11/17 16:45) Insulin Human Reg Supp Scale (Novolin R (04/11/17 18:00) Neuro Checks ELICEO.Q1H (04/11/17 16:31) Albuterol-Ipratropium Neb (Duoneb Neb) (04/11/17 22:00) Albuterol-Ipratropium Neb (Duoneb Neb) (04/11/17 16:45) Chest, Single Ap (04/12/17 06:00) Urinary Catheter Management ELICEO.Q1H (04/11/17 16:31) Vital Signs (Adult) ELICEO.Q1H (04/11/17 16:35) Activity Bed Rest (04/11/17 16:35) ^ Elevate Head Of Bed (04/11/17 16:35) ^ Orogastric Tube (04/11/17 16:35) Diet Npo (04/11/17 Dinner) Sodium Chlor 0.9% 1000 Ml Inj (Ns 1000 M (04/11/17 16:35) Pantoprazole Inj (Protonix Inj) (04/12/17 09:00) Ondansetron Inj (Zofran Inj) (04/11/17 16:45) Scd Bilateral/Knee High ELICEO.BID (04/11/17 16:35) Pharmacologic Contraindication (04/11/17 16:35) ^ Initiate Protocol (04/11/17 16:35) ^ Instruction (04/11/17 16:35) Misc Nursing Information (04/11/17 16:45) Chlorhexidine 2% Cloth (Chlorhexidine 2% (04/12/17 04:00) Chlorhexidine 2% Cloth (Chlorhexidine 2% (04/11/17 16:45) Mrsa Pcr Surveillance (04/11/17 16:35) Labs Laboratory Tests Test 04/11/17 04/11/17 15:55 16:15 White Blood Count 7.2 TH/MM3 Red Blood Count 3.51 MIL/MM3 Hemoglobin 11.6 GM/DL Hematocrit 32.9 % Mean Corpuscular Volume 93.7 FL Mean Corpuscular Hemoglobin 32.9 PG Mean Corpuscular Hemoglobin 35.1 % Concent Red Cell Distribution Width 12.6 % Platelet Count 294 TH/MM3 Mean Platelet Volume 6.7 FL Neutrophils (%) (Auto) 71.5 % Lymphocytes (%) (Auto) 19.5 % Monocytes (%) (Auto) 7.8 % Eosinophils (%) (Auto) 0.4 % Basophils (%) (Auto) 0.8 % Neutrophils # (Auto) 5.1 TH/MM3 Lymphocytes # (Auto) 1.4 TH/MM3 Monocytes # (Auto) 0.6 TH/MM3 Eosinophils # (Auto) 0.0 TH/MM3 Basophils # (Auto) 0.1 TH/MM3 CBC Comment DIFF FINAL Differential Comment Prothrombin Time 11.2 SEC Prothromb Time International 1.0 RATIO Ratio Activated Partial 28.5 SEC Thromboplast Time Urine Color LIGHT-YELLOW Urine Turbidity CLEAR Urine pH 7.0 Urine Specific Perkins 1.004 Urine Protein 100 mg/dL Urine Glucose (UA) TRACE mg/dL Urine Ketones TRACE mg/dL Urine Occult Blood TRACE Urine Nitrite NEG Urine Bilirubin NEG Urine Urobilinogen LESS THAN 2.0 MG/DL Urine Leukocyte Esterase NEG Urine RBC LESS THAN 1 /hpf Urine WBC LESS THAN 1 /hpf Microscopic Urinalysis Comment CULT NOT INDICATED Sodium Level 113 MEQ/L Potassium Level 2.4 MEQ/L Chloride Level 74 MEQ/L Carbon Dioxide Level 16.9 MEQ/L Anion Gap 22 MEQ/L Blood Urea Nitrogen 8 MG/DL Creatinine 0.69 MG/DL Estimat Glomerular Filtration 89 ML/MIN Rate Random Glucose 168 MG/DL Calcium Level 8.5 MG/DL Ethyl Alcohol Level 71 MG/DL Blood Gas Puncture Site RT RADIAL Blood Gas Patient Temperature 98.6 Blood Gas HCO3 13 mmol/L Blood Gas Base Excess -11.2 mmol/L Blood Gas Oxygen Saturation 97 % Arterial Blood pH 7.37 Arterial Blood Partial 24 mmHg Pressure CO2 Arterial Blood Partial 288 mmHG Pressure O2 Arterial Blood Oxygen Content 13.5 Vol % Arterial Blood 2.3 % Carboxyhemoglobin Arterial Blood Methemoglobin 0.6 % Blood Gas Hemoglobin 9.4 G/DL Oxygen Delivery Device VENTILATOR Blood Gas Ventilator Setting AC16/400/PEEP5 Blood Gas Inspired Oxygen 50 % MDM Medical Decision Making Medical Screen Exam Complete: Yes Emergency Medical Condition: Yes Medical Record Reviewed: Yes Differential Diagnosis Intracranial hemorrhage, ischemic stroke, brain stem herniation Narrative Course I have reviewed the patient's electronic medical record. She was admitted February 2017 for ischemic stroke and has history of hypertension This patient is critically ill. Very hypertensive on scene but that has improved spontaneously. She arrives with one IV. Nurse placed a second peripheral IV and I placed a left external jugular 18-gauge IV. INTUBATION: The patient was put in optimal position for the procedure. I gave her 100 mg IV lidocaine prior to intubation. She did not require any sedation. I removed the Combitube. The patient was intubated with a 7.5 cuffed endotracheal tube. Tube placement was confirmed by visualization of the tube and balloon passing through the cords, capnometry and subsequent chest x-ray. Breath sounds were equal and well aerated bilaterally postintubation. No breath sounds over stomach. Patient tolerated procedure well. Patient needed emergent airway control and no consent could be obtained as the patient is unresponsive I sent her emergently for brain CT which reveals massive intraventricular hemorrhage [place] catheter placed and labs sent Blood pressure 150/95 after intubation I reviewed the case emergently with neurosurgeon Dr. Nelson. He has reviewed the images as well. Coupling that with her clinical picture which is bleak, he has determined he is not able to salvage this patient unfortunately. He will come down and do a formal consultation and discuss with family members. I reviewed the situation with the patient's sister and significant other. I reviewed with culinary chef Dr. Gill who is evaluating the patient now. He will admitted to intensive care on a ventilator and critical status but this does not appear to be compatible with life. I reviewed that with available family and they have agreed with DO NOT RESUSCITATE status and I have filled out the form. Blood pressure has dropped to 90/60 CBC is normal Metabolic profile is very abnormal with critical hyponatremia of 113 and critical hypokalemia of 2.4 Critical Care Narrative Aggregate critical care time was 80 minutes. Time to perform other separately billable procedures was not included in the critical care time. My time did not include minutes spent treating any other patients simultaneously or on activities that did not directly contribute to the patient's treatment. The services I provided to this patient were to treat and/or prevent clinically significant deterioration that could result in: Brain stem herniation, intracranial hemorrhage, permanent neurologic deficit, I provided critical care services requiring my management, as noted below: Chart data review, documentation time, medication orders and management, vital sign assessments/reviewing monitor data, ordering and reviewing lab tests, ordering and interpreting/reviewing x-rays and diagnostic studies, care of the patient and discussion of the patient with the admitting physicians. Diagnosis Primary Impression: Intracranial hemorrhage following injury with loss of consciousness of 1 hour to 5 hours 59 minutes Qualified Code: S06.303A - Intracranial hemorrhage following injury with loss of consciousness of 1 hour to 5 hours 59 minutes, initial encounter Additional Impressions: Hyponatremia Hypokalemia Unresponsive Admitting Information Admitting Physician Requests: William Dudley MD April 11, 2017 15:54
[2017-04-11 16:10] LABS: AUTOMATED NEUTROPHIL # 5.1 TH/MM3 (1.8-7.7); BASOPHIL # 0.1 TH/MM3 (0-0.2); BASOPHIL % 0.8 % (0.0-2.0); EOSINOPHIL % 0.4 % (0.0-4.0); HEMATOCRIT 32.9 % (35.0-46.0); HEMO FLAGS DIFF FINAL; LYMPH % 19.5 % (9.0-44.0); LYMPHOCYTE # 1.4 TH/MM3 (1.0-4.8); MEAN CELL VOLUME 93.7 FL (80.0-100.0); MEAN CORPUSCULAR HEMOGLOBIN 32.9 PG (27.0-34.0); MEAN CORPUSCULAR HGB CONC 35.1 % (32.0-36.0); MONO % 7.8 % (0.0-8.0); NEUT % 71.5 % (16.0-70.0); PLATELET COUNT 294 TH/MM3 (150-450); RED BLOOD COUNT 3.51 MIL/MM3 (4.00-5.30); RED CELL DISTRIBUTION WIDTH 12.6 % (11.6-17.2); WHITE BLOOD COUNT 7.2 TH/MM3 (4.0-11.0)
[2017-04-11 16:12] LABS: BLOOD, URINE TRACE (NEG); COMMENT (UR) CULT NOT INDICATED; CULTURE IF INDICATED CULT NOT INDICATED; GLUCOSE,URINE TRACE mg/dL (NEG); KETONE, URINE TRACE mg/dL (NEG); NITRITE,URINE NEG (NEG); URINE COLOR LIGHT-YELLOW (YELLW/STRAW)
[2017-04-11 16:21] LABS: BLOOD GAS BASE EXCESS -11.2 mmol/L (-2-2); BLOOD GAS CARBOXYHEMOGLOBIN 2.3 % (0-4); BLOOD GAS HCO3 13 mmol/L (22-26); BLOOD GAS METHEMOGLOBIN 0.6 % (0-2); BLOOD GAS O2 HGB SATURATION 97 % (90-100); BLOOD GAS OXYGEN CONTENT 13.5 Vol % (12.0-20.0); BLOOD GAS PCO2 24 mmHg (38-42); BLOOD GAS PO2 288 mmHG (61-120); BLOOD GAS TOTAL HGB 9.4 G/DL (12.0-16.0); CRITICAL VALUE YES; OXYGEN DEVICE VENTILATOR; TEMP CORR TO 98.6
[2017-04-11 16:22] VITALS: O2SAT 100
[2017-04-11 16:22] LABS: DRAW SITE RT RADIAL; FIO2 50 %; NUMBER OF ARTERIAL PUNCTURES 1; STAT YES; ULNAR PULSE PRESENT; VENT SETTINGS AC16/400/PEEP5
[2017-04-11 16:26] LABS: APTT (PATIENT) 28.5 SEC (24.3-30.1); PROTHROMBIN TIME - PATIENT 11.2 SEC (9.8-11.6)
[2017-04-11 16:33] LABS: BICARBONATE 16.9 MEQ/L (21.0-32.0)
[2017-04-11] MEDS ORDERED: SODIUM CHLOR 0.9% 1000 ML INJ 1,000 ML IV SCH (16:35)
[2017-04-11 16:36] LABS: POTASSIUM 2.4 MEQ/L (3.5-5.1)
--- NOTE | 2017-04-11 16:38 | HHI.HP ---
[facility] Service Critical Care Medicine Primary Care Physician Shelia Martines MD Admission Diagnosis Diagnosis: Chief Complaint: altered mental status Travel History International Travel<30 Days: No Contact w/Intl Traveler <30 Da: No Traveled to Known Affected Are: No History of Present Illness This is a 51-year-old female with a past medical history significant for hypertension and a prior lung cancer status post lobectomy and chemoradiation now in remission for the last 2 years who was at home and she told her significant other that she did not feel well and went to lay down. He found her approximately 20-30 minutes later completely unresponsive and called 911. When EMS got there she was obtunded. She came in with a [facility] to the [place] emergency department. In the emergency department and airway was secured. She was initially severely hypertensive with systolics greater than 200. She was taken emergently to the cat scanner where they found a massive subtentorial intraparenchymal hemorrhage with extension into the ventricular system, including both cerebellar hemispheres with significant hydrocephalus and effacement the cline-white matter differentiation and evidence of both upwards and hours herniation. I evaluated the patient emergency department, and she is unresponsive in a GCS of 3 and unable to provide additional history. Review of Systems ROS Limitations: Clinical Condition, Intubated, Unresponsive Past Family Social History Allergies: Coded Allergies: Clindamycin (Verified Allergy, Severe, rash, 04/08/17) Levaquin (Verified Allergy, Intermediate, Itching, 04/08/17) Naprosyn (Verified Allergy, Intermediate, rash, 04/08/17) Amoxicillin (Verified Allergy, Mild, ITCHING, 04/08/17) SWELLING Penicillin (Verified Allergy, Mild, ITCHING, 04/08/17) Past Medical History Per the significant other: Hypertension, poorly controlled, has been to multiple doctors recently and has had intermittent follow-up, most recently started on a new blood pressure medicine, but the significant other does not know which one this is. Lung cancer, status post lobectomy and chemotherapy radiation. This is apparently been in remission for the last 2 years. Past Surgical History Lobectomy Reported Medications Patient takes multiple blood pressure medicines, but significant other does not know which ones. Active Ordered Medications See MAR Family History The patient had a family member on her father's side who of a heart attack in his early 50s, the remainder of the family history is unknown Social History Drinks at least 2-6 beers a day. Still smokes. Denies drugs of abuse. Physical Exam Vital Signs Vital Signs Date Time Temp Pulse Resp B/P Pulse Ox O2 Delivery O2 Flow Rate FiO2 04/11/17 16:22 100 100 04/11/17 16:02 20 04/11/17 15:40 98 50 04/11/17 15:34 91 20 149/95 100 Physical Exam On my examination, the patient is a middle-aged female which appears much older than stated age. She is intubated, unresponsive, on no sedation. Her pupils are 5 mm, bilaterally equal and fixed, dilated. Negative doll's sign. Negative corneals. Negative cough. Negative gag. The patient is a GCS of 3. Does not move any extremities. The patient is on a ventilator on 80% FiO2. Lungs are clear to auscultation. Heart is regular rate and rhythm and sinus by telemetry. Blood pressure at this point is controlled 120 systolic. Laboratory Laboratory Tests Test 04/11/17 04/11/17 15:55 16:15 White Blood Count 7.2 Red Blood Count 3.51 Hemoglobin 11.6 Hematocrit 32.9 Mean Corpuscular Volume 93.7 Mean Corpuscular Hemoglobin 32.9 Mean Corpuscular Hemoglobin 35.1 Concent Red Cell Distribution Width 12.6 Platelet Count 294 Mean Platelet Volume 6.7 Neutrophils (%) (Auto) 71.5 Lymphocytes (%) (Auto) 19.5 Monocytes (%) (Auto) 7.8 Eosinophils (%) (Auto) 0.4 Basophils (%) (Auto) 0.8 Neutrophils # (Auto) 5.1 Lymphocytes # (Auto) 1.4 Monocytes # (Auto) 0.6 Eosinophils # (Auto) 0.0 Basophils # (Auto) 0.1 CBC Comment DIFF FINAL Differential Comment Prothrombin Time 11.2 Prothromb Time International 1.0 Ratio Activated Partial 28.5 Thromboplast Time Urine Color LIGHT-YELLOW Urine Turbidity CLEAR Urine pH 7.0 Urine Specific Haworth 1.004 Urine Protein 100 Urine Glucose (UA) TRACE Urine Ketones TRACE Urine Occult Blood TRACE Urine Nitrite NEG Urine Bilirubin NEG Urine Urobilinogen LESS THAN 2.0 Urine Leukocyte Esterase NEG Urine RBC LESS THAN 1 Urine WBC LESS THAN 1 Microscopic Urinalysis Comment CULT NOT INDICATED Sodium Level 113 Potassium Level 2.4 Chloride Level 74 Carbon Dioxide Level 16.9 Anion Gap 22 Blood Urea Nitrogen 8 Creatinine 0.69 Estimat Glomerular Filtration 89 Rate Random Glucose 168 Calcium Level 8.5 Ethyl Alcohol Level 71 Blood Gas Puncture Site RT RADIAL Blood Gas Patient Temperature 98.6 Blood Gas HCO3 13 Blood Gas Base Excess -11.2 Blood Gas Oxygen Saturation 97 Arterial Blood pH 7.37 Arterial Blood Partial 24 Pressure CO2 Arterial Blood Partial 288 Pressure O2 Arterial Blood Oxygen Content 13.5 Arterial Blood 2.3 Carboxyhemoglobin Arterial Blood Methemoglobin 0.6 Blood Gas Hemoglobin 9.4 Oxygen Delivery Device VENTILATOR Blood Gas Ventilator Setting AC16/400/PEEP5 Blood Gas Inspired Oxygen 50 Result Diagram: 04/11/17 1555 04/11/17 1555 Imaging Last Impressions Head CT 04/11/17 0000 Signed Impressions: Service Date/Time: Tuesday, April 11, 2017 16:03 - CONCLUSION: Significant intraventricular hemorrhage with parenchymal hemorrhage in the 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 Patient has history of carcinoma. Aguila Song MD FACR Chest X-Ray 04/11/17 0000 Signed Impressions: Service Date/Time: Tuesday, April 11, 2017 16:22 - CONCLUSION: 1. Hyperinflated. 2. ET tube and nasogastric tube are in good position. Aguila Song MD FACR Assessment and Plan Assessment and Plan Assessment: This is a 51-year-old female with massive cerebral hemorrhage in the posterior fossa. Her ICH score is 5. In addition to her devastating neurologic injury, she also has life-threatening hyponatremia, hypokalemia, and metabolic acidosis which are likely secondary to her alcohol use and are unlikely to be related to such an acute injury, as the kidneys would not have time to alter her serum sodium levels that quickly. Given this, the patient would've likely been admitted to the hospital intensive care unit even outside of her cerebral hemorrhage, and given her comorbidities and her chronic alcohol use, likely would've had a prolonged hospitalization and a high risk of mortality from her medical issues alone. Combining this with her massive intracranial bleed with her ICH score, which alone would suggest 100% mortality rate, I think her overall medical picture is nonsurvivable at this point. I discussed all this with her family. We have documented in our medical record from 2013 medical decision making paperwork giving her significant other the sole decision making responsibility if she was incapacitated. I've also spoken with one of her 3 sons, and he agrees that the significant other would be the most appropriate choice to make medical decisions. Her significant other his ask that she be made DNR/DNI and he would ask that we await some family members to arrive, and he is leaning towards palliative withdrawal of care. Active problems: Massive intracerebral hemorrhage with intraventricular spread Evidence of transtentorial herniation Severe encephalopathy Acute hypoxic and hypercarbic respiratory failure Severe metabolic acidosis Severe life-threatening hyponatremia Severe hypokalemia Hypertensive emergency Plan: Frequent neuro checks Await family members, and clarifications of goals of care Goal systolic blood pressure less than 140, meeting on her own Nicardipine as needed for this Neurosurgery consult, Dr. Nelson following This patient remains critically ill with one or more organ systems which are a threat to life. The time documented here represents time I spent in active management of the patient while our goals were aggressive and our resuscitation and medical investigation and decision making were ongoing. I have spent in excess of 67 minutes discontinuously in the care and management of this patient. This time is exclusive of procedures, and includes, but is not limited to, evaluation of the patient, review of the medical record, discussions with family, consultants, nursing staff, or respiratory therapy, and documentation in the medical record. Code Status DNR/DNI Capo Montes De Oca MD April 11, 2017 16:38
[2017-04-11] MEDS ORDERED: POTASSIUM CHLOR 20 MEQ PREMIX 100 ML IV PRN ×2 (16:45)
[2017-04-11] MEDS ORDERED: RESP: ALBUTEROL 2.5 MG/IPRATROPIUM 0.5 MG NEB (PRN) INH (16:45)
[2017-04-11] MEDS ORDERED: MAGNESIUM OXIDE 400 MG TAB PO PRN (16:45)
[2017-04-11] MEDS ORDERED: SODIUM PHOSPHATE INJ 30 MMOL in SODIUM CHLOR 0.9% 250 ML INJ 240 ML IV PRN (16:45)
[2017-04-11] MEDS ORDERED: CHLORHEXIDINE GLUCONATE 2 % 1 PACK (2 CLOTHS) TOP PRN (16:45)
[2017-04-11] MEDS ORDERED: POTASSIUM PHOSPHATE MONOBASIC 500 MG TAB PO PRN (16:45)
[2017-04-11] MEDS ORDERED: MAGNESIUM SULFATE INJ 2 GM in SODIUM CHLORIDE 0.9% INJ 96 ML IV PRN (16:45)
[2017-04-11] MEDS ORDERED: DEXTROSE 50% IN WATER 50 ML VIAL(D50) IV PUSH PRN (16:45)
[2017-04-11] MEDS ORDERED: MAGNESIUM SULFATE INJ 4 GM in SODIUM CHLORIDE 0.9% INJ 92 ML IV PRN (16:45)
[2017-04-11] MEDS ORDERED: MISCELLANEOUS NURSING INFORMATION XX SCH (16:45)
[2017-04-11] MEDS ORDERED: POTASSIUM PHOSPHATE MONOBASIC 500 MG TAB PO/TUBE PRN (16:45)
[2017-04-11] MEDS ORDERED: POTASSIUM CHLOR 40 MEQ PREMIX 100 ML IV PRN ×2 (16:45)
[2017-04-11] MEDS ORDERED: ONDANSETRON HCL 4 MG/2 ML VIAL IV PRN (16:45)
[2017-04-11 17:03] LABS: AMPHETAMINE, URINE NEG (NEG); BARBITURATES, URINE NEG (NEG); COCAINE, URINE NEG (NEG)
--- NOTE | 2017-04-11 17:17 | RADRPT ---
EXAM DATE/TIME: 04/11/2017 16:03 [facility] COMPARISON: MRA BRAIN W/O CONTRAST, February 21, 2017, 16:57. CT BRAIN W/O CONTRAST, February 21, 2017, 9:23. INDICATIONS : Altered mental status today, unresponsive. RADIATION DOSE: 56.77 CTDIvol (mGy) MEDICAL HISTORY : Carcinoma, lung. Hypertension. SURGICAL HISTORY : None. ENCOUNTER: Initial ACUITY: 1 day PAIN SCALE: Non-responsive LOCATION: Bilateral head TECHNIQUE: Multiple contiguous axial images were obtained of the head. Using automated exposure control and adj ustment of the mA and/or kV according to patient size, radiation dose was kept as low as reasonably a chievable to obtain optimal diagnostic quality images. FINDINGS: There is a large intraventricular hemorrhage with massive hydrocephalus. Blood extends to the 4th ve ntricle and involving both hemispheres. Parenchymal hemorrhage is evident in both cerebellar hemisph eres more so on the left than the right. 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 Patient has history of carcinoma. Aguila Song MD FACR on April 11, 2017 at 16:08 Board Certified Radiologist. This report was verified electronically.
--- NOTE | 2017-04-11 17:22 | RADRPT ---
EXAM DATE/TIME: 04/11/2017 16:22 [facility] COMPARISON: CHEST SINGLE AP, June 03, 2015, 4:30. INDICATIONS : Post intubation. MEDICAL HISTORY : Hypertension. Carcinoma, lung SURGICAL HISTORY : None. ENCOUNTER: Subsequent ACUITY: 1 day PAIN SCORE: Non-responsive. LOCATION: Bilateral chest FINDINGS: ET tube and nasogastric tube are in good position. The lungs are clear. Heart and pulmonary vascula rity are normal. Portion of bony skeleton visualized is unremarkable. CONCLUSION: 1. Hyperinflated. 2. ET tube and nasogastric tube are in good position. Aguila Song MD FACR on April 11, 2017 at 16:37 Board Certified Radiologist. This report was verified electronically.
[2017-04-11 17:41] VITALS: O2SAT 100
[2017-04-11 18:00] VITALS: O2SAT 100
[2017-04-11] MEDS ORDERED: INSULIN NovoLIN REGULAR SUPPLEMENTAL SCALE SQ SCH (18:00)
[2017-04-11] MEDS ORDERED: CHLORHEXIDINE 0.12% (ORAL KIT) 15 ML CUP MT SCH (20:00)
[2017-04-11] MEDS ORDERED: RESP: ALBUTEROL 2.5 MG/IPRATROPIUM 0.5 MG NEB (SCH) INH (22:00)
[2017-04-12] MEDS ORDERED: CHLORHEXIDINE GLUCONATE 2 % 1 PACK (2 CLOTHS) TOP SCH (04:00)
[2017-04-12] MEDS ORDERED: PANTOPRAZOLE SODIUM 40 MG VIAL IV SCH (09:00)
--- NOTE | 2017-04-12 15:24 | EKG ---
Date Performed: 04/11/2017 Time Performed: 15:37:12 PTAGE: 51 years EKG: ATRIAL ABNORMALITY LVH DIFFUSED ST-T CHANGES WHICH MAY BE DUE TO LVH, ISCHEMIA IS ANOTHER C ONSIDERATION Compared to previous tracing, QRS voltage is greater and the generalized ST depression m ore anterolaterally than inferiorly is new. ABNORMAL ECG PREVIOUS TRACING : 02/21/2017 08.56 DOCTOR: Lincoln Vasques Interpretating Date/Time 04/12/2017 15:23:51
== END 2017-04-11 22:55 | disposition expired | DRG 64 ==
LOC: NEPC 15:30 → NEDA 16:55 → N03B 17:43
PROVIDERS: ADMIT Internal Medicine Critical Care Medicine; ATTEND Internal Medicine Critical Care Medicine
PROC: 0BH17EZ Insertion of Endotracheal Airway into Trachea, Via Natural or Artificial Opening (ICD-10-PCS; principal; 2017-04-11)
PROC: 5A1935Z Respiratory Ventilation, Less than 24 Consecutive Hours (ICD-10-PCS; 2017-04-11)
PROC: 0T9B70Z Drainage of Bladder with Drainage Device, Via Natural or Artificial Opening (ICD-10-PCS; 2017-04-11)
DX: I61.5 Nontraumatic intracerebral hemorrhage, intraventricular (principal); G93.5 Compression of brain; J96.01 Acute respiratory failure with hypoxia; J96.02 Acute respiratory failure with hypercapnia; G93.40 Encephalopathy, unspecified; G91.9 Hydrocephalus, unspecified; E87.1 Hypo-osmolality and hyponatremia; E87.2 Acidosis; I16.1 Hypertensive emergency; I10 Essential (primary) hypertension; F17.200 Nicotine dependence, unspecified, uncomplicated; Z86.73 Personal history of transient ischemic attack (TIA), and cerebral infarction without residual deficits; Z66 Do not resuscitate; E87.6 Hypokalemia; Z85.118 Personal history of other malignant neoplasm of bronchus and lung; Z90.2 Acquired absence of lung [part of]; Z92.21 Personal history of antineoplastic chemotherapy; Z92.3 Personal history of irradiation
CPT/HCPCS: 31500; 36600; 51702; 70450; 71010; 80048; 80307; 81001; 82805; 85025; 85610; 85730; 93005; 94002